=== PATIENT | female | born 1995 | race Caucasian/White ===

== ENCOUNTER 2017-07-09 21:14 | Emergency (ER) | payer BC ==
[~2017-07-09] VITALS: Ht 170.2 cm; Wt 104.0 kg
[2017-07-09 21:17] VITALS: TEMP 37; Ht 170.2 cm; Wt 104.0 kg
[2017-07-09] MEDS ORDERED: RANITIDINE HCL 50 MG/100 ML D5W IV STA (21:58)
[2017-07-09] MEDS ORDERED: DEXAMETHASONE SOD INJ 10 MG/ML VIAL IV ONE (22:00)
[2017-07-09] MEDS ORDERED: DIPH1TAB PO (22:15)
[2017-07-09] MEDS ORDERED: ALBU1.257 NEB (22:15)
[2017-07-09] MEDS ORDERED: EPP3/2 IM (22:15)
[2017-07-09] MEDS ORDERED: SYMIN160 INH (22:15)
[2017-07-09] MEDS ORDERED: ALBU18002 INH (22:15)
[2017-07-09] MEDS ORDERED: ONDANSETRON INJ 2 MG/ML 2 ML VIAL IV STA (22:41)
[2017-07-09] MEDS ORDERED: ONDANSETRON HOME PACK 4MG OD TAB PO ONE (22:45)
[2017-07-09] MEDS ORDERED: PRED50TA PO (22:55)
[2017-07-10] MEDS ORDERED: LORAZEPAM 2 MG/ML 1 ML VIAL IV STA (00:30)
[2017-07-10] MEDS ORDERED: ALBUTEROL HFA 8 GM INHALER INH STA (00:47)
[2017-07-10] MEDS ORDERED: DiphenhydrAMINE HCL 50 MG/ML VIAL IV STA (00:55)
[2017-07-10 01:03] VITALS: BP 107/72; PULSE 85; O2SAT 96
--- NOTE | 2017-07-10 01:35 | EMERGENCY ROOM VISIT NOTE ---
History First contact with patient: 21:48 Chief Complaint: ALLERGIC REACTION Stated Complaint: WHEEZING, HIVES IN MOUTH, THROAT CLOSING Nursing Triage Summary: pt states "I am having an allergic reaction. I ate a cookie and i have a tree nut allergy." pt c/o trouble breathing, congestion, swelling in throat and hives. 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 pt amb from triage to C05 independently, appears in no distress, talking and laughing with friend in room at this time History of Present Illness The patient is a 22 year old female who presents to the Emergency Room with complaints of allergic reaction after eating a cookie tonight that supposedly had no peanuts in it. Patient states he needed to take a bite of the cookie and started to feel itchy and her throat got tight. She took 50mg of Benadryl and then came ER. Patient denies chest pain, dyspnea, abdominal pain, tongue swelling, diarrhea. Patient states she feels nauseous and anxious. Review of Systems See HPI for pertinent positives & negatives. A total of 10 systems reviewed and were otherwise negative. Past Medical/Surgical History Asthma Social History Smoking Status: Never Smoker Smokeless Tobacco Use: No Alcohol Use: occasionally Drug Use: none Occupation Status: [employer] | [employer] student Current/Historical Medications Scheduled Albuterol Sulfate (Proair Respiclick), 2 PUFF INH PRN UD Budesonide/Formoterol Fumarate (Symbicort 160/4.5 Inhaler ), 1 PUFFS INH BID Diphenhydramine Hcl (Benadryl Allergy), 50 MG PO PRN Epinephrine (Epipen), 0.3 MG IM UD Prednisone (Prednisone), 50 MG PO DAILY Scheduled PRN Albuterol Sulfate (Albuterol Sulfate), 1 VIAL NEB QID PRN for SOB/Wheezing Physical Exam Vital Signs Date Time Temp Pulse Resp B/P (MAP) Pulse Ox O2 Delivery O2 Flow Rate FiO2 07/10/17 01:03 85 18 107/72 96 Room Air 07/10/17 00:14 74 18 110/82 98 Room Air 07/09/17 23:12 75 18 136/84 98 Room Air 07/09/17 21:35 98 Room Air 07/09/17 21:17 37.0 77 20 141/89 97 Room Air Physical Exam VITALS: Vitals are noted on the nurse's note and reviewed by myself. Vital signs stable. GENERAL: Pleasant anxious-appearing female, in no acute distress, nondiaphoretic , well-developed well-nourished. SKIN: Diffuse erythematous raised dermatitis that is blanchable most consistent with hives The rest of the skin was without rashes, erythema, edema, or bruising. There is no tenting of the skin. Capillary reflex less than 2 seconds. HEAD: Normocephalic atraumatic. EARS: External auditory canals clear, tympanic membranes pearly montes without erythema or effusion bilaterally. EYES: Pupils equal round and reactive to light and accommodation. Conjunctivae without injection, sclerae without icterus. Extraocular movements intact. NOSE: Patent, turbinates without inflammation or discharge. No sinus tenderness. MOUTH: Mucous membranes moist. Pharynx without erythema or exudate. Uvula midline. Airway patent. Tongue does not deviate. NECK: Supple without nuchal rigidity. No lymphadenopathy. No thyromegaly. Cervical spine is nontender. No JVD. HEART: Regular rate and rhythm without murmurs gallops or rubs. LUNGS: Clear to auscultation bilaterally without wheezes, rales or rhonchi. No dullness to percussion. No retractions or accessory muscle use. ABDOMEN: Positive bowel sounds x 4. Normal tympanic percussion. Soft, nontender, without masses or organomegaly. Santiago sign negative. No guarding or rebound tenderness. MUSCULOSKELETAL: No muscle atrophy, erythema, or edema noted. NEURO: Patient was alert and oriented to person place and time. Normal sensation to light and sharp touch. No focal neurological deficits. Medical Decision & Procedures Medications Administered Medications (Trade) Dose Ordered Sig/Nina Route Start Time Stop Time Status Last Admin Dose Admin Dexamethasone Sodium Phosphate (Decadron Inj) 10 mg NOW ONCE IV 07/09/17 22:00 07/09/17 22:01 DC 07/09/17 22:13 10 MG Ranitidine HCl (zANTac IV) 50 mg NOW STAT IV 07/09/17 21:58 07/09/17 21:59 DC 07/09/17 22:13 50 MG Ondansetron HCl (Zofran Inj) 4 mg NOW STAT IV 07/09/17 22:41 07/09/17 22:43 DC 07/09/17 22:41 4 MG Ondansetron HCl (ZOFRAN ODT 4MG Home Pack) 1 homepack UD ONCE PO 07/09/17 22:45 07/09/17 22:46 DC 07/09/17 22:45 1 HOMEPACK Lorazepam (Ativan Inj) 1 mg NOW STAT IV 07/10/17 00:30 07/10/17 00:31 DC 07/10/17 00:36 1 MG Albuterol (Ventolin Hfa Inhaler) 2 puffs ONE STAT INH 07/10/17 00:47 07/10/17 00:48 DC 07/10/17 00:54 2 PUFFS Diphenhydramine HCl (Benadryl Inj) 50 mg NOW STAT IV 07/10/17 00:55 07/10/17 00:57 DC 07/10/17 01:00 50 MG ED Course Prior records/ancillary studies reviewed. Triage Nursing notes reviewed. Additional history obtained from friends. The patient's history was concerning for possible allergic reaction. Differential diagnosis: Etiologies such as allergic reaction, anaphylaxis, urticaria, Sharp-Adebayo syndrome, toxic epidermal necrolysis, erythema multiforme, cellulitis, as well as others were entertained. Physical examination: As above. ER treatment provided: Continuous cardiac monitoring Benadryl 50 mg IV Zantac 50 mg IV Decadron 10 mg IV Ativan and Zofran On reassessment the patient felt better. Diagnostic interpretation by me: Deferred It appears the patient had an allergic reaction. Patient was nervous and anxious and does not feel comfortable going home unless being observed for a few hours in the ER. This was done. Patient is well-appearing.The above treatment did well to reverse the symptoms. After prolonged monitoring and frequent reassessments the patient did very well and symptoms resolved. The patient was counseled on the spectrum of this disease process and told to avoid potential triggers. I gave my usual and customary discussion regarding this issue. By the evaluation outlined above emergent etiologies such as recurring anaphylaxis, anaphylatic shock, airway compromise, Sharp-Adebayo syndrome, toxic epidermal necrolysis, erythema multiforme, infectious etiologies, as well as others were deemed relatively unlikely. The pt informed about the findings as listed above. All questions were answered and pleased with the treatment. Return instructions were outlined and the patient was discharged in stable condition. Outpatient prescription management: prednisone Referral: The patient was referred back to primary care physician for follow-up in 2-3 days for a recheck of the current condition. Medical Decision As above Medication Reconcilliation Current Medication List: was personally reviewed by me Blood Pressure Screening Patient's blood pressure: Normal blood pressure Impression Primary Impression: Allergic reaction Departure Information Prescriptions Prednisone (Prednisone) 50 Mg Tab 50 MG PO DAILY for 4 Days, #4 TAB Prov: Gela Fiore ., BLUE 07/09/17 Referrals No Doctor, Assigned (PCP) Patient Instructions [facility] Problem Qualifiers Primary Impression: Allergic reaction Encounter type: initial encounter Qualified Codes: T78.40XA - Allergy, unspecified, initial encounter
== END 2017-07-10 01:45 | disposition home or self-care (01) ==
LOC: C.EDB 21:16 → C.EDC 07-10 01:45
DX: T78.40XA Allergy, unspecified, initial encounter (principal); X58.XXXA Exposure to other specified factors, initial encounter; J45.909 Unspecified asthma, uncomplicated